=== PATIENT | female | born 1965 | race Caucasian/White ===

== ENCOUNTER 2016-06-19 16:47 | Outpatient (CLI) ==
[2015-06-07 17:20] VITALS: BMI 41.1
[2016-06-19 17:25] LABS: BASOPHILS % (AUTO) 0.6 % (0.0-3.0); EOSINOPHILS # (AUTO) 0.4 K/ul (0.0-0.7); EOSINOPHILS % (AUTO) 5.5 % (0.0-7.0); HEMATOCRIT 37.4 % (37.0-47.0); HEMOGLOBIN 12.1 g/dl (12.0-16.0); IMMATURE GRANULOCYTE % (AUTO) 0.5 % (0.0-5.0); LYMPHOCYTES # (AUTO) 1.9 K/uL (0.60-3.4); LYMPHOCYTES % (AUTO) 29.7 (10.0-50.0); MEAN CORPUSCULAR HEMOGLOBIN 30.9 pg (27.0-31.0); MEAN CORPUSCULAR HGB CONC 32.4 (31.8-35.4); MEAN CORPUSCULAR VOLUME 95.4 fl (81.0-99.0); MONOCYTES # (AUTO) 0.6 K/uL (0.4-2.0); NEUTROPHILS # (AUTO) 3.5 K/ul (2.0-6.9); NEUTROPHILS % (AUTO) 54.7; PLATELET COUNT 323 10^3/uL (140-440); RED BLOOD COUNT 3.92 10^6/ul (4.20-5.40); WHITE BLOOD COUNT 6.36 K/ul (4.6-10.2)
[2016-06-19 17:36] LABS: BILIRUBIN,URINE Negative (NEGATIVE); KETONES,URINE Negative (NEGATIVE); LEUKOCYTE ESTERASE ,URINE Negative (NEGATIVE); NITRITE,URINE Negative (NEGATIVE); PH,URINE 6.5 (5-9); PROTEIN,URINE Negative (NEGATIVE); URINE, BLOOD Negative (NEGATIVE)
[2016-06-19 17:43] LABS: ADD URINE MICROSCOPIC NO
[2016-06-19 18:17] LABS: ALBUMIN 3.7 g/dL (3.4-5.0); ALBUMIN/GLOBULIN RATIO 1.19; ANION GAP 11.8; BILIRUBIN,TOTAL 0.21 mg/dL (0.00-1.20); BUN/CREATININE RATIO 21.25; CALCIUM 9.6 mg/dL (8.2-10.2); CHOL/HDL RATIO 3.4 (4.5-5.5); CREATININE 0.8 mg/dL (0.60-1.30); POTASSIUM 3.8 mmol/L (3.5-5.10); TOTAL PROTEIN 6.8 g/dL (6.4-8.2)
== END 2016-06-19 16:48 | disposition home or self-care (01) ==
LOC: LAB 16:47
PROVIDERS: ATTEND General Practice
DX: Z00.00 Encounter for general adult medical examination without abnormal findings (principal); E66.9 Obesity, unspecified
CPT/HCPCS: 36415; 80053; 80061; 81001; 84443; 85025

== ENCOUNTER 2017-12-10 11:49 | Outpatient (CLI) | payer OTHER ==
[2015-06-07 17:20] VITALS: BMI 41.1
== END 2017-12-10 11:50 | disposition home or self-care (01) ==
LOC: FCC-LAB 11:49
PROVIDERS: ATTEND General Practice
DX: E78.5 Hyperlipidemia, unspecified (principal); I10 Essential (primary) hypertension; M54.9 Dorsalgia, unspecified; R53.83 Other fatigue; R09.89 Other specified symptoms and signs involving the circulatory and respiratory systems; Z79.899 Other long term (current) drug therapy
CPT/HCPCS: 36415; 80053; 80061; 81001; 85025

== ENCOUNTER 2017-12-17 12:26 | Outpatient (CLI) ==
[2015-06-07 17:20] VITALS: BMI 41.1
--- NOTE | 2017-12-17 13:09 | US ---
EXAM: Bilateral carotid artery Doppler History: Dizziness, weakness and hypertension. Technique: Multiple sonographic images through the bilateral internal carotid arteries were obtained . Color duplex Doppler was used to interrogate vascular flow. Findings: The right ICA peak systolic velocity is within normal limits measuring 80 cm/sec The right ICA/cca P SV ratio is normal at 1.3. The right vertebral artery is patent and demonstrates antegrade flow. Gr ay scale images demonstrate mild plaque buildup within the right internal carotid artery. The left ICA peak systolic velocities within normal limits measuring 100 cm/sec. The left ICA/cca PS V ratio is normal at 1.8. The left vertebral artery is patent and demonstrates antegrade flow. Ennis scale images demonstrate mild plaque buildup within the left internal carotid artery. Impression: No significant hemodynamic stenosis of the bilateral internal carotid arteries.
== END 2017-12-17 12:27 | disposition home or self-care (01) ==
LOC: RAD 12:26
PROVIDERS: ATTEND General Practice
DX: R09.89 Other specified symptoms and signs involving the circulatory and respiratory systems (principal)

== ENCOUNTER 2018-07-09 15:07 | Emergency (ER) ==
[2018-07-09 15:10] VITALS: BP 170/80; TEMP 97.4; BMI 38.2
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
--- NOTE | 2018-07-09 18:14 | DI ---
EXAM: Three views of the right ankle HISTORY: Injury TECHNIQUE: AP lateral, oblique views of the right ankle were obtained. FINDINGS: There is an oblique mildly displaced fracture of the distal fibula. There is a large soft tissue swelling. The joint spaces are normal. IMPRESSION: There is a mildly displaced oblique fracture of the distal fibula.
[2018-07-09] MEDS: TORADOL IM STA (20:55)
== END 2018-07-09 21:09 | disposition home or self-care (01) ==
LOC: ED 15:07
DX: S82.831A Other fracture of upper and lower end of right fibula, initial encounter for closed fracture (principal); W19.XXXA Unspecified fall, initial encounter; F17.210 Nicotine dependence, cigarettes, uncomplicated
CPT/HCPCS: 96372; 99282